=== PATIENT | female | born 1965 | race Caucasian/White ===

== ENCOUNTER 2018-06-04 11:05 | Observation (INO) | payer BC ==
[~2018-06-04] VITALS: Ht 165.1 cm; Wt 91.8 kg
--- NOTE | ~2018-06-04 | HEMODYNAMI ---
PATIENT:DAREK GRAHAM MEDICAL RECORD: [id number] : 69 LOCATION:[facility] D.2125 ADMISSION DATE: 06/04/18 Generatedon:06/05/201810:46 Patient name: DAREK GRAHAM Patient #: [id number] SSN: : 1965 Date of study: 06/05/2018 Page: Of Hemodynamic Procedure Report Patient Data Patient Demographics Procedure consent was obtained First Name: DAREK Gender: Female Last Name: GLADYS : 1965 Middle Initial: F Age: 52 year(s) Patient #: [id number] Race: Unknown Additional ID: [id number] Contact details Address: [facility] [address] State: [place] City: [place] Zip code: [address] Admission Admission Data Admission Date: 06/04/2018 Admission Time: 16:55 Room #: D.2125 Lab Results Lab Result Date: 06/05/2018 Lab Result Time: 0:00 Biochemistry Name Units Result Min Max BUN mg/dl 18 --(---*)-- 7 18 Creatinine mg/dl 1.2 --(---*)-- 0.6 1.3 CBC Name Units Result Min Max Hemoglobin g/dl 16.8 --(---*)-- 13.5 17.5 Procedure Procedure Types Cath Procedure Diagnostic Procedure C [facility] w/Coronaries Procedure Description Procedure Date Procedure Date: 06/05/2018 Procedure Start Time: 10:36 Procedure End Time: 10:42 Procedure Staff Name Function Reynold Hermosillo MD Performing Physician Chiara Rodrigez RT Monitor Niranjan Soto RT Scrub Sunita Jimenez RN Nurse Procedure Data Cath Procedure Fluoroscopy Diagnostic fluoroscopy Total fluoroscopy Time: 1 time: 1 min min Diagnostic fluoroscopy Total fluoroscopy dose: 487 dose: 487 mGy mGy Contrast Material Contrast Material Type Amount (ml) Isovue 300 56 Entry Location Entry Primary Successful Side Size Upsize Upsize Entry Closure Waggoner ccessful Closure Location (Fr) 1 (Fr) 2 (Fr) Remarks Device Remarks Radial Right 6 Fr Mechanical artery Short Compression Estimated blood loss: 5 ml Diagnostic catheters Device Type Used For End Catheter Placement DIAGNOSTIC [place] 110cm 5 Multi-vessel Fr catheter ([id number]) Angiography Procedure Complications No complications Procedure Medications Medication Administration Route Dosage 0.9% NaCl I.V. 100 ml/hr Oxygen etCO2 Nasal cannula 2 l/min Lidocaine 2% added to field 20 Heparin Flush Bag added to field 2 bags (1000units/500ml NS) Radial Cocktail added to field 1 syringe (Verapomil 2mg/Nitro 400mcg/Heparin 1500units) Versed I.V. 2 mg Fentanyl I.V. 50 mcg Versed I.V. 2 mg Fentanyl I.V. 50 mcg Hemodynamics Rest HGB: 16.8 (g/dl) Heart Rate: 62 (bpm) Pressure Samples Time Site Value (mmHg) Purpose Heart Use Rate(bpm) 10:38 LV 140/-9,10 Snapshot 70 10:39 AO 132/86(108) Pullback 70 10:39 LV 132/4,8 Pullback 70 Gradients Valve Time Site 1 Site 2 Mean SEP/DFP Peak To Heart Use (mmHg) (sec/min) Peak Rate (mmHg) (bpm) Aortic 10:39 LV AO 4 9 0 70 132/4,8 132/86(108) Calculations Valve P-P Mean Valve Index Valve Source Name Gradient Area Flow (cm2) Aortic 0 4 0 4 Snapshots Pre Cath Intra NCS Post Cath Vital Signs Time Heart Resp SPO2 etCO2 NIBP (mmHg) Rhythm Pain Sedation Rate (ipm) (%) (mmHg) Status Level (bpm) 10:21:16 64 17 100 37.9 192/96(139) NSR 0 (11) 10(A) , No pain 10:25:59 65 14 100 39.4 176/93(117) NSR 0 (11) 10(A) , No pain 10:30:36 79 16 97 32.5 171/99(131) NSR 0 (11) 10(A) , No pain 10:35:16 76 13 100 42 163/84(128) NSR 0 (11) 9(A) , No pain 10:39:57 70 13 100 32.6 145/79(114) NSR 0 (11) 10(A) , No pain Medications Time Medication Route Dose Verified Delivered Reason Notes E ffectiveness by by 10:18:48 0.9% NaCl I.V. 100 Reynold Dorsey used for ml/hr [place] Tony procedure RN 10:18:54 Oxygen etCO2 2 l/min Reynold Martinesa used for Nasal [facility] procedure cannula MD MILLS 10:18:59 Lidocaine 2% added 20ml Reynold Flaherty for local to vial [facility] anesthetic field MD UMANZOR 10:19:03 Heparin Flush added 2 bags Reynold Flaherty used for Bag to [facility] procedure (1000units/500ml field MD UMANZOR NS) 10:19:08 Radial Cocktail added 1 Reynold Flaherty used for (Verapomil to syringe [facility] procedure 2mg/Nitro field MD UMANZOR 400mcg/Heparin 1500units) 10:26:30 Versed I.V. 2 mg Reynold Martinesa for Bay[place]ah Jimenez sedation RN 10:26:41 Fentanyl I.V. 50 mcg Reynold Martinesa for BayMicah Jimenez sedation RN 10:31:31 Versed I.V. 2 mg Reynold Arthuryla for [place] Tony sedation RN 10:31:35 Fentanyl I.V. 50 mcg Reynold Martinesa for [place] Tony sedation MD MILLSsugar reprocess operator head Log Time Note 10:02:05 Diagnostic Cath Status : Elective 10:02:39 Chiara Rodrigez RT(R) sent for patient. Start room use. 10:02:41 Time tracking: Regular hours (M-F 7:00 - 5:00) 10:02:49 Plan of Care:Hemodynamics will remain stable., Cardiac rhythm will remain stable., Comfort level will be maintained., Respiratory function will remain adequate., Patient/ family verbilizes understanding of procedure., Procedure tolerated without complication., Recovers from procedure without complications.. 10:10:16 Patient received from Med II to CCL 1 Alert and oriented. Tansferred to table in Supine position. 10:10:18 Warm blankets applied, and cayla hugger turned on for patient comfort. 10:10:18 Correct patient and procedure confirmed by team. 10:10:20 Signed procedure consent form obtained from patient. 10:10:21 ECG and BP/O2 sat monitors applied to patient. 10:18:28 Vital chart was started 10:18:48 0.9% NaCl 100 ml/hr I.V. was administered by Sunita Jimenez RN; used for procedure; 10:18:54 Oxygen 2 l/min etCO2 Nasal cannula was administered by Sunita Jimenez RN; used for procedure; 10:18:59 Lidocaine 2% 20ml vial added to field was administered by Reynold Hermosillo MD; for local anesthetic; 10:19:03 Heparin Flush Bag (1000units/500ml NS) 2 bags added to field was administered by Reynold Hermosillo MD; used for procedure; 10:19:08 Radial Cocktail (Verapomil 2mg/Nitro 400mcg/Heparin 1500units) 1 syringe added to field was administered by Reynold Hermosillo MD; used for procedure; 10:22:44 Baseline sample Acquired. 10:22:48 Rhythm: sinus rhythm 10:22:50 Full Disclosure recording started 10::57 H&P Date Dictated: 06/05/2018 New H&P dictated by physician.. 10:22:59 Pre-procedure instructions explained to patient. 10:22:59 Pre-op teaching completed and patient verbalized understanding. 10:23:00 Family in waiting room. 10:23:01 Patient NPO since Midnight. 10:23:03 Is the patient allergic to Iodine/contrast media? No. 10:23:04 Was the patient premedicated? No 10:23:40 Is patient on blood thinner?No 10:23:41 Patient diabetic? Yes. 10:23:42 If diabetic: On Metformin? Yes 10:23:45 If on Metformin: Last Dose? 06/04/2018 10:23:49 Previous problem with sedation/anesthesia? No ? 10:23:51 Snore? Yes 10:23:52 Sleep apnea? No 10:23:53 Deviated septum? No 10:23:54 Opens mouth fully? Yes 10:23:54 Sticks out tongue? Yes 10:23:56 Airway obstruction? No ? 10:24:03 Dentures? Yes loose tooth 10:25:21 Lab Result : Hemoglobin 16.8 g/dl 10:25:21 Lab Result : Creatinine 1.2 mg/dl 10::21 Lab Result : BUN 18 mg/dl 10:25:45 Pre procedure: right dorsailis pedis pulse 2+ Normal; easily identifiable; not easily obliterated 10::47 Pre procedure: left dorsailis pedis pulse 2+ Normal; easily identifiable; not easily obliterated 10:25:48 Patient pain scale 0/10 ?. 10:25:59 IV patent on arrival in right forearm, left forearm with 0.9% NaCl at O. 10:26:02 Lab results completed and on chart. 10:26:06 Right Radial & Right Groin area was prepped with chlora-prep and draped in sterile fashion 10::07 Alarms reviewed by R. N. 10::07 Sharps counted by scrub and verified by R.N. 10:26:09 Physician arrived 10:: --------ALL STOP TIME OUT------ 10::10 Final Timeout: patient, procedure, and site verified with staff and physician. All members of the team are in agreement. 10:26:12 Right Radial & Right Groin site verified by team. 10:26:17 Maximum allowable Isovue 300 dose 300ml. Physician notified. (300ml for normal creatinines. For patients with creatinine of 1.7 or higher multiply weight(kg) x 5 divided by creatinine.) 10:26:22 Fire Safety Assessment: A--An alcohol-based skin anteseptic being used preoperatively., C--Open oxygen or nitrous oxide is being used., D--An ESU, laser, or fiber-optic light is being used. 10:26:26 Physical assessment completed. ASA score P 2 - A patient with mild systemic disease as per Reynold Hermosillo MD. 10:26:30 Versed 2 mg I.V. was administered by Sunita Jimenez RN; for sedation; 10:26:30 Sedation plan: IV Moderate Sedation Medication:Versed, Fentanyl 10:26:39 Use device set Radial Dx or PCI 10:26:40 ACIST Syringe (22768) opened to sterile field. 10:26:41 Fentanyl 50 mcg I.V. was administered by Sunita Jimenez RN; for sedation; 10:26:41 Medline Cath Pack ([id number]) opened to sterile field. 10:26:41 Bag Decanter (2002) opened to sterile field. 10:26:42 DIAGNOSTIC WIRE .035 260cm J wire (065307) opened to sterile field. 10:26:42 ACIST Hand Control (73858) opened to sterile field. 10:26:43 ACIST Manifold (43518) opened to sterile field. 10:26:43 Tegaderm 4 x 4 (1626W) opened to sterile field. 10:26:44 MBrace Wrist Support ([id number]) opened to sterile field. 10:26:46 SHEATH 6FR Slender (19-2811) opened to sterile field. 10:31:24 Zero performed for pressure channel P1 10:31:31 Versed 2 mg I.V. was administered by Sunita Jimenez RN; for sedation; 10:31:35 Fentanyl 50 mcg I.V. was administered by Sunita Jimenez RN; for sedation; 10:32:01 Zero performed for pressure channel P1 10:36:42 Procedure started. 10:36:54 Local anesthetic to right radial artery with Lidocaine 2% by Reynold Hermosillo MD.INITIAL ACCESS ONLY 10:37:24 A 6 Fr Short sheath was inserted into the Right Radial artery 10:37:35 A DIAGNOSTIC [place] 110cm 5 Fr catheter ([id number]) was advanced over the wire and used for Multi-vessel Angiography. 10:39:02 LV hemodynamics recorded. 10:39:04 LV gram done using WHEELER 10:39:06 Injector settings: Ml/sec: 5, Volume: 15, 10:39:16 EF : 55 % 10:39:26 LCA angiography performed. 10:39:52 Injector settings: Ml/sec: 3, Volume: 6, 10:40:51 RCA angiography performed. 10:40:54 Injector settings: Ml/sec: 3, Volume: 6, 10:40:56 Catheter removed. 10:40:58 TR BAND Standard ([id number]) opened to sterile field. 10:41:17 Sheath removed intact; hemostasis achieved with Mechanical Compression to the Right Radial artery. 10:41:19 Procedure ended.(Physican Out) 10:41:31 Fluoroscopy time 01.00 minutes. 10:41:35 Fluoroscopy dose: 487 mGy 10:41:35 Flurop Dose total: 487 10:41:39 Contrast amount:Isovue 300 56ml. 10:41:41 Sharps counted by scrub and verified by R.N. 10:41:44 TR band inflated with 10cc of air. 10:41:45 Insertion/operative site no bleeding no hematoma. 10:41:50 Post right radial artery:stable 10:41:53 Post Procedure Pulses reassessed and unchanged 10:42:03 Post procedure rhythm: unchanged. 10:42:06 Estimated blood loss: 5 ml 10:42:07 Post procedure instruction explained to patient.Patient verbalizes understanding. 10:42:08 Patient needs reinforcement of post procedure teaching. 10:42:14 Procedure and supply charges have been captured, reviewed, submitted and are correct. 10:42:19 Procedure Complication : No complications 10:42:28 Vital chart was stopped 10:42:29 See physician's report for complete and final results. 10:42:32 Report given to Pre/Post Procedure Room. 10:42:35 Patient transfered to Pre/Post Procedure Room with Stretcher. 10:42:37 Procedure ended. 10:42:37 Full Disclosure recording stopped 10:42:41 End room use (Document Last) Device Usage Item Name Manufacture Quantity Catalog Hospital Part Current Minimal Lot# / Number Charge Number Stock Stock Serial# Code ACIST Acist 1 65786 [id number] 767207 820902 20 Syringe Medical (14714) Systems Inc Medline Medline 1 [id number] 446254 00043 880917 5 Cath Pack ([id number]) Bag Microtek 1 2001S 446951 31438 874095 5 Decanter Medical Inc. (2001S) DIAGNOSTIC [place] 1 360195 336362 010980 105329 30 WIRE .035 260cm J wire (205013) ACIST Hand Acist 1 59832 639009 982042 991905 5 Control Medical (12790) Systems Inc ACIST Acist 1 82564 869572 705008 134264 5 Manifold Medical (33052) Systems Inc Tegaderm 4 3M 1 1626W 541163 690833 856983 5 x 4 (1626W) MBrace Advanced 1 140-0250-00 560310 51483 815899 5 Wrist Vascular Support Dynamics ([id number]) SHEATH 6FR Terumo 1 [id number] 510218 037626 489213 5 Slender (80-1060) DIAGNOSTIC Terumo 1 40-3953 434872 511915 462872 5 [place] 110cm 5 Fr catheter (626931) TR BAND Terumo 1 [id number] 614996 433884 105375 40 Standard ([id number]) Signature Audit [place] Stage Time Signature Unsigned Intra-Procedure 06/05/2018 Chiara Rodrigez 10:46:43 AM RT(R) Signatures Monitor : Chiara Rodrigez RT Signature : Date : Time : [place] [id number] [place] [address]
[2018-06-04 11:57] LABS: BASOPHILS 0.3 % (0-2); EOSINOPHILS 1.2 % (0-7); HEMATOCRIT 47.7 % (36.0-48.0); HEMOGLOBIN 16.8 g/dL (12-16); IMMATURE GRANULOCYTES 0.4 % (0-5); LYMPHOCYTES 15.2 % (15-50); MCH 32.8 pg (26.0-34.0); MCHC 35.2 g/dL (31.0-37.0); MCV 93.2 fL (80.0-100.0); MEAN PLATELET VOLUME 10.1 fL (7.4-10.4); MONOCYTES 4.3 % (2-11); NEUTROPHILS 78.6 % (40-80); PLATELET COUNT 204 10x3/uL (130-400); RBC 5.12 10x6/uL (4.00-5.40); RDW 12.8 % (11.5-14.5); WBC 11.3 10x3/uL (4.8-10.8)
[2018-06-04 11:58] LABS: ALBUMIN 3.3 g/dL (3.4-5.0); ALKALINE PHOSPHATASE 114 U/L (46-116); ALT (SGPT) 22 U/L (10-68); BILIRUBIN - TOTAL 0.32 mg/dL (0.2-1.3); CALC OSMOLALITY 283 mosm/kg (275-300); CALCIUM 7.6 mg/dL (8.5-10.1); CARBON DIOXIDE 23.5 mmol/L (21.0-32.0); CHLORIDE - SERUM 108 mmol/L (98-107); CREATININE - SERUM 1.2 mg/dL (0.6-1.3); GLUCOSE 151 mg/dL (74-106); POTASSIUM - SERUM 3.2 mmol/L (3.5-5.1); PROTEIN - SERUM 6.8 g/dL (6.4-8.2); SODIUM 140 mmol/L (136-145); UREA NITROGEN 18 mg/dL (7-18); eGFR NON AFRICAN AMERICAN 50 mL/min (90-120)
[2018-06-04 12:16] LABS: CKMB 1.6 U/L (0.0-3.6); CREATINE KINASE 165 UL (21-215); MAGNESIUM - SERUM 1.7 mg/dL (1.8-2.4); PRO BNP 431 pg/mL (0-125); T4 THYROXIN - FREE 1.04 ng/dL (0.76-1.46)
[2018-06-04] MEDS ORDERED: CARDIZEM LA180 MG PO (12:19)
[2018-06-04] MEDS ORDERED: METFORMIN HCL500 M1 PO (12:19)
[2018-06-04 12:20] VITALS: BP 178/92
[2018-06-04 12:22] LABS: TROPONIN-I 0.082 ng/mL (0.000-0.060)
[2018-06-04 16:08] LABS: TROPONIN-I 1.004 ng/mL (0.000-0.060)
--- NOTE | 2018-06-04 20:16 | NUR ---
PT SITTING UP PLAYING ON PHONE. HR STABLE AT 76 BPM- NSR. PT TO GO TO MED 2. APOLOGIZED FOR WAIT. PT VERBALIZES UNDERSTANDING AND IS PLEASANT.
[2018-06-04 20:33] LABS: CKMB 7.8 U/L (0.0-3.6); CREATINE KINASE 207 UL (21-215)
[2018-06-04 20:34] LABS: TROPONIN-I 2.774 ng/mL (0.000-0.060)
[2018-06-04 21:23] VITALS: BP 113/52
[2018-06-04 21:33] VITALS: BP 194/102
--- NOTE | 2018-06-04 22:55 | NUR ---
RECIEVED REPORT FROM ER. ARRIVED TO FLOOR IN W/C. ALERT AND ORIENTED X4 AND UP AD BILLIE. IV TO LEFT WRIST AND RIGHT AC SL.. DENIES ANY CHEST PAIN. TELEMETRY IN PLACE. DENIES ANY NEEDS AT THIS TIME.
[2018-06-05 01:20] VITALS: BP 146/80
[2018-06-05 01:45] VITALS: BP 194/102; Ht 165.1 cm; Wt 91.8 kg
[2018-06-05 02:49] LABS: CKMB 6.2 U/L (0.0-3.6); CREATINE KINASE 187 UL (21-215)
[2018-06-05 02:58] LABS: TROPONIN-I 2.757 ng/mL (0.000-0.060)
[2018-06-05 05:33] VITALS: BP 125/93
--- NOTE | 2018-06-05 07:30 | NUR ---
ALERT AND ORIENTED. TELEMERTY SHOWS SR. IVS TO LEFT WRIST AND RIGHT AC. DENIES ANY NEEDS,
[2018-06-05 08:35] VITALS: BP 156/88
[2018-06-05 09:45] LABS: BASOPHILS 0.2 % (0-2); EOSINOPHILS 2.6 % (0-7); HEMATOCRIT 42.6 % (36.0-48.0); HEMOGLOBIN 14.5 g/dL (12-16); IMMATURE GRANULOCYTES 0.3 % (0-5); MCH 32.3 pg (26.0-34.0); MCV 94.9 fL (80.0-100.0); MEAN PLATELET VOLUME 10.3 fL (7.4-10.4); MONOCYTES 6.3 % (2-11); NEUTROPHILS 61.6 % (40-80); PLATELET COUNT 225 10x3/uL (130-400); RBC 4.49 10x6/uL (4.00-5.40); RDW 13.1 % (11.5-14.5); WBC 10.1 10x3/uL (4.8-10.8)
[2018-06-05 09:47] LABS: ANION GAP 13.5 mmol/L (8-16); CALCIUM 8.4 mg/dL (8.5-10.1); CREATININE - SERUM 1.5 mg/dL (0.6-1.3); POTASSIUM - SERUM 3.5 mmol/L (3.5-5.1)
--- NOTE | 2018-06-05 09:55 | NUR ---
TO INTERNATIONAL ACCOUNTING MANAGER.
--- NOTE | 2018-06-05 10:44 | CN ---
PATIENT NAME:DAREK GRAHAM MEDICAL RECORD: [id number] : 69 LOCATION:[facility] D.2125 ADMIT DATE: 06/04/18 ACCOUNT: [id number] CONSULTING PHYSICIAN: CRISTOBAL JAFFE MD REFERRING PHYSICIAN: CRISTOBAL JAFFE MD DATE OF CONSULTATION: 06/05/2018 HISTORY OF PRESENT ILLNESS: A 52-year-old female with known history of coronary artery disease, has a history of hypertension, diabetes mellitus, has have been having some breathlessness, chest tightness consistent with coronary disease, was found to be in SVT, presented to the ER, had a nice conversion pharmacologically; however, has had a continued increase in her troponin. Difficult to tell if this is a type 1 or type 2 STEMI; however, given age, risk factors being admitted for diagnostic angiography. PAST MEDICAL HISTORY: Includes: 1. History of hypertension. 2. Hyperglycemia. ALLERGIES: KEFLEX. MEDICATIONS: Typically include metformin 500 mg every day, amlodipine 5 every day, benazepril 20 every day. SOCIAL HISTORY: Nonsmoker. Easily takes care of all her ADLs. No set exercise program. REVIEW OF SYSTEMS: The patient reports easy bruising but reports no swollen glands. The patient reports no fever, no night sweats, no significant weight gain, no significant weight loss. No significant exercise tolerance. The patient reports no dry eyes, no irritation, no vision change. Patient reports no difficulty hearing and no ear pain. Patient reports no frequent nose bleeds or nose and sinus problems. Patient reports on arm pain on exertion. No shortness of breath while lying down. No history of heart murmur. Patient reports no cough, no wheezing or coughing up blood. Patient reports no abdominal pain, no vomiting. Normal appetite. No diarrhea and not vomiting blood. No nausea and no constipation. Patient reports no incontinence. No difficulty urinating. No hematuria. No increased frequency. Patient reports no muscle aches. No weakness, no arthralgias, no back pain. No swelling of the extremities. Patient reports no abnormal mole, no jaundice, no rashes. Reports no loss of consciousness. No weakness and no numbness. No seizures, dizziness, or headaches. The patient reports no depression, no sleep disturbance, feeling safe in a relationship and no alcohol abuse. Patient reports on fatigue. Reports no runny nose or sinus pressure. No itching, no hives, and no frequent sneezing. PHYSICAL EXAMINATION: GENERAL: Pleasant female in no acute distress, appears stated age. VITAL SIGNS: Pulse 75, blood pressure 125/93. HEENT: Normocephalic, atraumatic. NECK: No bruits noted. HEART: Regular, II/ systolic ejection murmur. LUNGS: Good air excursion. ABDOMEN: Soft, nontender. EXTREMITIES: Pulses 2+. There is no edema. CONSULT REPORT [id number] DAREK GRAHAM DIAGNOSTIC DATA: ECG shows nonspecific ST-T changes diffusely with SVT. IMPRESSION: Non-ST elevation myocardial infarction type 1 versus type 2, combination of the above. PLAN: For angiography, intervention based on above. TRANSINT:[id number] Voice Confirmation ID: [id number] DOCUMENT ID: [id number] CRISTOBAL JAFFE MD at 1044 CC: [id number] DICTATION DATE: 06/05/1837 COFFIN MAKER: 06/05/18 0845 ADM IN [place] [id number] [place] [address]
--- NOTE | 2018-06-05 10:57 | NUR ---
CATH FINISHED AND WII RECOVERY IN CATH RECOVERY
--- NOTE | 2018-06-05 11:10 | NUR ---
PATIENT AWAKE, GIVEN WATER AND TURKEY SANDWICH PER REQUEST. NO N/V. RIGHT TR BAND IN PLACE, NO S/S OF BLEEDING OR HEMATOMA. NO C/O PAIN, NUMBNESS, OR TINGLING. VSS ON ROOM AIR. FAMILY AT BEDSIDE.
--- NOTE | 2018-06-05 11:40 | NUR ---
BEGIN AIR REMOVAL PROTOCOL FOR TR BAND, NO S/S OF BLEEDING OR HEMATOMA. NO C/O PAIN, NUMBNESS, OR TINGLING. VSS ON ROOM AIR. NO N/V.
--- NOTE | 2018-06-05 12:10 | NUR ---
FOLLOWING AIR REMOVAL PROTOCOL, REMAINING AIR REMOVED FROM TR BAND. NO S/S OF BLEEDING OR HEMATOMA. NO C/O PAIN, NUMBNESS, OR TINGLING. VSS ON ROOM AIR.
--- NOTE | 2018-06-05 12:30 | NUR ---
BOTH PERIPHERAL IVS REMOVED. PATIENT GETTING DRESSED AT THIS TIME.
--- NOTE | 2018-06-05 12:40 | NUR ---
EDUCATION REGARDING DISCHARGE INSTRUCTIONS GIVEN TO PATIENT, PATIENT VOICES UNDERSTANDING. DRESSING APPLIED TO RIGHT RADIAL SITE IS CDI, NO S/S OF BLEEDING OR HEMATOMA. NO C/O PAIN, NUMBNESS, OR TINGLING.
--- NOTE | 2018-06-05 12:50 | NUR ---
PATIENT TRANSPORTED VIA WHEELCHAIR TO CAR WITH FAMILY DRIVING, ALL BELONGINGS WITH PATIENT.
--- NOTE | 2018-06-06 11:02 | NUR ---
LEANDRO CALLS FOR DIRECTIONS FOR PT TAKING METFORMIN. DIRECTIONS PROVIDED.
--- NOTE | 2018-06-06 14:40 | OP ---
PATIENT NAME: DAREK GRAHAM MEDICAL RECORD: [id number] :69 LOCATION:[facility] ADMISSION DATE:06/04/18 SURGEON: CRISTOBAL JAFFE MD DATE OF OPERATION: 06/05/2018 PROCEDURES: Left heart catheterization, selective coronary angiography, right radial approach. CATHETERS: [place] catheter, radial sheath. The procedure was well tolerated. The patient returned to the dexter. Sheath was removed. TR band was placed. FINDINGS: Left ventriculography in 30-degree WHEELER view: Mild global hypo. Overall LV function is still preserved at 50%. CORONARY ANATOMY: LEFT MAIN: Left main is free of disease. LAD: Free of disease in the diagonal system. CIRCUMFLEX: Free of disease in the marginal system. RIGHT CORONARY ARTERY: Dominant artery, gives rise to PDA, free of disease. IMPRESSION: Elevated troponin secondary to SVT, type 2 TX/ischemia. TRANSINT:[id number] Voice Confirmation ID: [id number] DOCUMENT ID: [id number] CRISTOBAL JAFFE MD at 1440 CC: [id number] DICTATION DATE: 06/05/18 1047 DISTRICT LEADER: 06/05/18 1058 DIS IN 06/05/18 [facility] [address] [place] [address]
== END 2018-06-05 12:50 | disposition home or self-care (01) ==
LOC: D.ER 11:05 → D.M2 16:55 → OBSVTIME 16:55 → D.EDHOLD 16:55 → D.M2 20:30 → D.CLR 06-05 10:55
PROVIDERS: Emergency Medicine; ADMIT Internal Medicine Interventional Cardiology; ATTEND Internal Medicine Interventional Cardiology
DX: I21.A1 Myocardial infarction type 2 (principal); I99.8 Other disorder of circulatory system; I10 Essential (primary) hypertension; E11.9 Type 2 diabetes mellitus without complications; I25.10 Atherosclerotic heart disease of native coronary artery without angina pectoris; I47.1 Supraventricular tachycardia

== ENCOUNTER → 2018-12-21 10:01 | Outpatient (CLI) | payer BC ==
[2018-06-05 01:45] VITALS: BMI 34.3
[~2018-12-21 10:01] MED LIST: CARDIZEM LA180 MG PO; METFORMIN HCL500 M1 PO
--- NOTE | 2018-12-23 09:56 | EC ---
PATIENT:DAREK GRAHAM DATE OF SERVICE: 12/21/18 SEX: F MEDICAL RECORD: [id number] DATE OF : 69 LOCATION:[facility] AGE OF PATIENT: 53 ADMISSION DATE: 12/21/18 REFERRING PHYSICIAN: INTERPRETING PHYSICIAN: CRISTOBAL JAFFE MD ECHOCARDIOGRAM REPORT ECHO CHARGES 4 ECHO COMPLETE Date: 12/21/18 CLINICAL DIAGNOSIS: HTN H/O OR/SVT ECHOCARDIOGRAPHIC MEASUREMENTS (adult normal given) AC root (d.<3.7cm) 2.9 cm LV Septum d (<1.2 cm> 1.5 cm Valve Excursion 2.0 cm LV Septum (systole) 2.1 cm Left Atria (s.<4.0cm> 3.6 cm LVPW d(<1.2cm) 1.2 cm RV (d.<2.3cm) 3.0 cm LVPW (sytole) 2.1 cm LV diastole(<5.6CM) 5.2 cm MV E-F(>70mm/sec) cm LV systole 2.5 cm LVOT Diameter 1.8 cm MV exc.(>10mm) cm Est.ejection fraction (50-75%) % DOPPLER: LVIT cm/sec A 75.0 cm/sec E 92.0 cm/sec LA cm/sec RVSP 15.3 mmHg LVOT 85.0 cm/sec AOP1/2T m/s Asc. Ao 114 cm/sec RVOT 51.0 cm/sec RA cm/sec PA 84.0 cm/sec AV Gradient Peak 5.2 mmHg AV Mean 3.5 mmHg AV Area 1.5 cm MV Gradient Peak 4.6 mmHg MV Mean 1.6 mmHg MV Area cm COMMENTS: OP - HC Early Childhood Worker: Richard GAUJARDO LEILA Electrical Prospecting Supervisor: 3 Dr. Espinoza TAPE# PACS Pericardial Effusion N DATE OF SERVICE: 12/21/2018 Adequate 2D, color flow imaging, spectral Doppler, and M-Mode LVH is present. LV internal dimension is normal. Wall motion is normal. EF is greater than or equal to 55%. Aortic valve is tricuspid. No evidence of stenosis by Doppler interrogation. Left atrium is normal at 3.6 cm. Mitral valve shows no prolapse. Trace MR. Right-sided chambers grossly normal. Trace TR. ECHOCARDIOGRAM REPORT [id number] DAREK GRAHAM TRANSINT:[id number] Voice Confirmation ID: [id number] DOCUMENT ID: [id number] CRISTOBAL JAFFE MD at 0956 CC: [id number] DICTATION DATE: 12/22/18955 SAMPLE SEWER: 12/22/18 1138 DEP CLI 12/21/18 [place] [id number] [place] [id number]
== END | disposition home or self-care (01) ==
LOC: D.HCCECHO 10:01
PROVIDERS: ATTEND Internal Medicine Interventional Cardiology
DX: I10 Essential (primary) hypertension (principal)